=== PATIENT | female | born 1990 | race Two or more races ===

== ENCOUNTER 2017-12-10 15:42 | Emergency (ER) | payer SELFPAY ==
[~2017-12-10] VITALS: Ht 157.5 cm; Wt 93.2 kg
[2017-12-10 15:57] VITALS: BP 124/92
== END 2017-12-10 19:45 | disposition left against medical advice (07) ==
LOC: EME 15:42
DX: Z53.21 Procedure and treatment not carried out due to patient leaving prior to being seen by health care provider (principal)

== ENCOUNTER 2018-02-06 21:05 | Outpatient (CLI) | payer SELFPAY ==
[2018-02-06 21:24] VITALS: BP 129/77
[2018-02-07] MEDS ORDERED: MICONAZOLE NITR45 GM VG (00:34)
[2018-02-07] MEDS ORDERED: FLAGYL500 MG PO (00:36)
[2018-02-07 00:55] LABS: SOURCE URINE
[2018-02-07 01:33] LABS: AMPHETAMINE NEGATIVE (500 ng/mL); BARBITURATES NEGATIVE (200 ng/mL); BENZODIAZEPINES NEGATIVE (150 ng/mL); BUPRENORPHINE NEGATIVE (10 ng/mL); COCAINE PRESUMPTIVE POSITIVE (150 ng/mL); METHADONE NEGATIVE (200 ng/mL); METHAMPHETAMINE NEGATIVE (500 ng/mL); OPIATES (MORPHINE) NEGATIVE (100 ng/mL); OXYCODONE NEGATIVE (100 ng/mL); PHENCYCLIDINE NEGATIVE (25 ng/mL); PROPOXYPHENE NEGATIVE (300 ng/mL); THC CANNABINOIDS PRESUMPTIVE POSITIVE (50 ng/mL); TRICYCLIC ANTIDEPRESSANTS NEGATIVE (300 ng/mL)
[2018-02-07 02:43] LABS: CANDIDA DNA PROBE POSITIVE; GARDNERELLA DNA PROBE POSITIVE; TRICHOMONAS DNA PROBE NEGATIVE
[2018-02-09 14:14] LABS: CHLAMYDIA TRACHOMATIS NEGATIVE; NEISSERIA GONORRHOEAE NEGATIVE
== END 2018-02-07 00:45 | disposition home or self-care (01) ==
LOC: LDRP-OP 21:05 → 2WEST 21:08
PROVIDERS: Advanced Practice Midwife; Obstetrics & Gynecology
DX: O46.92 Antepartum hemorrhage, unspecified, second trimester (principal); Z3A.22 22 weeks gestation of pregnancy; O99.332 Smoking (tobacco) complicating pregnancy, second trimester; F17.200 Nicotine dependence, unspecified, uncomplicated
CPT/HCPCS: 84999; 87480; 87491; 87510; 87591; 87660; G0378

== ENCOUNTER 2018-03-29 15:16 | Emergency (ER) | payer SELFPAY ==
[~2018-03-29] VITALS: Ht 157.5 cm; Wt 86.3 kg
[~2018-03-29 15:16] MED LIST: FLAGYL500 MG PO; MICONAZOLE NITR45 GM VG
[2018-03-29] MEDS ORDERED: AUGMENTIN875 MG PO (16:15)
[2018-03-29 17:32] LABS: HEMATOCRIT 35.5 % (36.0-46.0); HEMOGLOBIN 11.8 G/DL (11.9-15.5); MCH 26.1 PG (29.0-34.0); MCHC 33.2 G/DL (30.0-36.0); MCV 78.5 FL (83-99); PLATELET COUNT 238 K/uL (156-360); RBC DIS.WIDTH-CV 17.2 % (11.8-14.6); RED BLOOD COUNT 4.52 M/uL (3.80-5.20); WHITE BLOOD COUNT 13.7 K/uL (4.1-10.2)
[2018-03-29 17:36] LABS: APPEARANCE TURBID ((CLEAR)); BILIRUBIN NEGATIVE; BLOOD NEGATIVE; COLOR AMBER ((YELLOW)); GLUCOSE (STRIP) NEGATIVE; KETONES 20; LEUKOCYTES MODERATE; NITRITE NEGATIVE; PROTEIN (STRIP) 100; SPECIFIC GRAVITY 1.029 (1.000-1.030)
[2018-03-29 17:41] LABS: ALBUMIN 3.9 g/dL (3.2-4.8); CHLORIDE 103 mEq/L (99-109); POTASSIUM 3.6 mEq/L (3.7-5.4); SODIUM 135 mEq/L (136-147)
[2018-03-29 17:43] LABS: GLUCOSE 71 mg/dL (70-99)
[2018-03-29 17:44] LABS: TOTAL PROTEIN 7.7 g/dL (6.4-8.3)
[2018-03-29 17:45] LABS: TOTAL BILIRUBIN 0.4 mg/dL (0.0-1.0)
[2018-03-29 17:47] LABS: ALKALINE PHOSPHATASE 105 IU/L (3-129); CREATININE 0.7 mg/dL (0.6-1.3); GFR ESTIMATE (CALCULATED) > 59 mL/min/
[2018-03-29 17:48] LABS: UREA NITROGEN (BUN) 5 mg/dL (9-23)
[2018-03-29 17:49] LABS: AST (GOT) 11 IU/L (2-34)
[2018-03-29 17:50] LABS: ALT (GPT) 9 IU/L (3-49)
[2018-03-29 18:04] LABS: BACTERIA 1+ /HPF; EPITHELIAL CELLS 4+ /HPF; MUCUS NONE SEEN /LPF; RED BLOOD CELLS 0-5 /HPF (0-5); UCUL ADDED? YES
[2018-03-29 18:18] VITALS: BP 137/73
== END 2018-03-29 18:20 | disposition home or self-care (01) ==
LOC: EME 15:16
PROVIDERS: Physician Assistant
DX: O9A.213 Injury, poisoning and certain other consequences of external causes complicating pregnancy, third trimester (principal); S60.512A Abrasion of left hand, initial encounter; W55.03XA Scratched by cat, initial encounter; Y92.512 Supermarket, store or market as the place of occurrence of the external cause; O23.43 Unspecified infection of urinary tract in pregnancy, third trimester; Z3A.30 30 weeks gestation of pregnancy; O99.333 Smoking (tobacco) complicating pregnancy, third trimester; F17.200 Nicotine dependence, unspecified, uncomplicated
CPT/HCPCS: 80053; 81003; 85027; 87086; 99281; 99284

== ENCOUNTER 2018-04-13 01:28 | Outpatient (CLI) | payer SELFPAY ==
[~2018-04-13 01:28] MED LIST changes: +AUGMENTIN875 MG PO
[2018-04-13 02:01] VITALS: BP 122/78
[2018-04-13 02:57] LABS: APPEARANCE SL.HAZY ((CLEAR)); BILIRUBIN SMALL; BLOOD NEGATIVE; COLOR AMBER ((YELLOW)); GLUCOSE (STRIP) NEGATIVE; KETONES NEGATIVE; LEUKOCYTES SMALL; NITRITE NEGATIVE; PROTEIN (STRIP) 30; SPECIFIC GRAVITY 1.031 (1.000-1.030)
[2018-04-13 03:01] LABS: BACTERIA NONE SEEN /HPF; EPITHELIAL CELLS 1+ /HPF; MUCUS 2+ /LPF; UCUL ADDED? YES
[2018-04-13 03:12] LABS: AMPHETAMINE NEGATIVE (500 ng/mL); BARBITURATES NEGATIVE (200 ng/mL); BENZODIAZEPINES NEGATIVE (150 ng/mL); BUPRENORPHINE NEGATIVE (10 ng/mL); COCAINE PRESUMPTIVE POSITIVE (150 ng/mL); METHADONE NEGATIVE (200 ng/mL); METHAMPHETAMINE NEGATIVE (500 ng/mL); OPIATES (MORPHINE) NEGATIVE (100 ng/mL); OXYCODONE NEGATIVE (100 ng/mL); PHENCYCLIDINE NEGATIVE (25 ng/mL); PROPOXYPHENE NEGATIVE (300 ng/mL); THC CANNABINOIDS PRESUMPTIVE POSITIVE (50 ng/mL); TRICYCLIC ANTIDEPRESSANTS NEGATIVE (300 ng/mL)
[2018-04-13 03:13] LABS: BASOPHIL (%) 0.1 % (0-1); EOSINOPHIL (%) 1.2 % (0-5); EOSINOPHIL COUNT 0.2 K/uL (0-0.3); HEMOGLOBIN 10.2 G/DL (11.9-15.5); IMMATURE GRANULOCYTE (%) 1.2 % (0.0-0.7); LYMPHOCYTE COUNT 4.3 K/uL (1.0-2.8); MCH 25.2 PG (29.0-34.0); MCHC 32.9 G/DL (30.0-36.0); MCV 76.7 FL (83-99); MONOCYTE (%) 6.7 % (3-12); MONOCYTE COUNT 0.9 K/uL (0-0.8); NEUTROPHIL (%) 59.8 % (45-76); NEUTROPHIL COUNT 8.2 K/uL (1.8-6.4); PLATELET COUNT 266 K/uL (156-360); RBC DIS.WIDTH-CV 16.8 % (11.8-14.6); RBC DIS.WIDTH-SD 46.5 % (39-53); RED BLOOD COUNT 4.04 M/uL (3.80-5.20); WHITE BLOOD COUNT 13.7 K/uL (4.1-10.2)
[2018-04-13 04:08] LABS: ANTI-HIV (AIDS STAT TEST) NONREACTIVE
[2018-04-13 04:28] LABS: SOURCE SWAB
[2018-04-13 05:12] VITALS: BP 107/59
[2018-04-13 06:33] LABS: CANDIDA DNA PROBE NEGATIVE; GARDNERELLA DNA PROBE POSITIVE; TRICHOMONAS DNA PROBE NEGATIVE
[2018-04-13 07:12] VITALS: BP 109/62
[2018-04-13] MEDS ORDERED: FLAGYL500 MG PO (08:28)
[2018-04-13 09:01] VITALS: BP 118/78
[2018-04-13 10:00] VITALS: BP 123/72
[2018-04-13 10:05] LABS: TREPONEMA ANTIBODY NEGATIVE (NEGATIVE)
[2018-04-13 11:29] LABS: HEPATITIS B SURFACE ANTIGEN Nonreactive; HEPATITIS C ANTIBODY Nonreactive
[2018-04-13 11:30] LABS: HIV-1/2 AB/AG COMBO Nonreactive
[2018-04-16 10:47] LABS: HEMOGLOBIN A1c (GLYCOHEMOGLOB) 4.1 % (Below 5.7)
== END 2018-04-13 10:14 | disposition home or self-care (01) ==
LOC: LDRP-OP → 2WEST 01:29 → LDRP-OP 07-11 01:13
PROVIDERS: Advanced Practice Midwife; Obstetrics & Gynecology
DX: O9A.213 Injury, poisoning and certain other consequences of external causes complicating pregnancy, third trimester (principal); R10.2 Pelvic and perineal pain; W50.0XXA Accidental hit or strike by another person, initial encounter; O99.013 Anemia complicating pregnancy, third trimester; D64.9 Anemia, unspecified; O09.33 Supervision of pregnancy with insufficient antenatal care, third trimester; Z3A.32 32 weeks gestation of pregnancy
CPT/HCPCS: 59025; 76805; 76818; 80306 90; 81003; 82731; 83036; 84999; 85025; 86762; 86780; 86803; 86850; 86900; 86901; 87081; 87086; 87340; 87389; 87480; 87491; 87510; 87591; 87653; 87660; G0378